=== PATIENT | male | born 1990 | race Caucasian/White ===

== ENCOUNTER 2017-12-15 17:06 | Emergency (ER) | payer SELFPAY ==
[~2017-12-15] VITALS: Ht 182.9 cm; Wt 86.4 kg
[~2017-12-15 17:06] MED LIST: NOCURR
[2017-12-15 17:40] VITALS: BP 135/78
== END 2017-12-15 17:41 | disposition home or self-care (01) ==
LOC: EMS 17:08
DX: K08.89 Other specified disorders of teeth and supporting structures (principal); R03.0 Elevated blood-pressure reading, without diagnosis of hypertension; F12.90 Cannabis use, unspecified, uncomplicated
CPT/HCPCS: 99283